=== PATIENT | male | born 1965 | race Caucasian/White ===

== ENCOUNTER 2023-06-26 04:25 | Day surgery (SDC) | payer OTHER ==
[2023-06-19 15:50] VITALS: BMI 33.5
[2023-06-26 08:42] VITALS: RESP 18
[2023-06-26 14:20] VITALS: BP 123/61; PULSE 79; TEMP 97.4
== END 2023-06-26 11:11 | disposition home or self-care (01) ==
LOC: JASU-ENDO 04:25
PROVIDERS: ATTEND Internal Medicine Gastroenterology
PROC: 0DJD8ZZ Inspection of Lower Intestinal Tract, Via Natural or Artificial Opening Endoscopic (ICD-10-PCS; principal; 2023-06-26 09:30)
DX: Z12.11 Encounter for screening for malignant neoplasm of colon (principal); Z80.0 Family history of malignant neoplasm of digestive organs